=== PATIENT | female | born 1950 | race Caucasian/White ===

== ENCOUNTER 2021-06-30 12:52 | Outpatient (CLI) | payer MEDICARE, SELFPAY ==
--- NOTE | 2021-07-01 07:20 | PFT ---
INTRODUCTION: The patient is a 70-year-old female that presents for pulmonary function studies secondary to a diagnosis of COPD. Respiratory therapy reported good patient effort. Bronchodilators were used during testing. INTERPRETATION: Forced expiration spirometry demonstrates the presence of a severe large airways obstructive ventilatory defect. There was no significant response to aerosolized bronchodilators. Spirograms are of fair quality but do not plateau indicating slow emptying of the lungs. Body plethysmography was performed and reveals lung volumes to be within normal limits. Diffusing capacity by single breath CO is reduced at 48% of predicted. IMPRESSION: Irreversible severe large airways obstructive ventilatory defect with symmetric reduction in diffusing capacity.
== END 2021-06-30 23:59 | disposition home or self-care (01) ==
PROVIDERS: PCP Nurse Practitioner Family; Referring Provider Internal Medicine Critical Care Medicine; Visit Provider Internal Medicine Critical Care Medicine
DX: J44.9 Chronic obstructive pulmonary disease, unspecified (principal)
CPT/HCPCS: 94060; 94726; 94729

== ENCOUNTER 2021-07-23 11:59 | Outpatient (CLI) | payer MEDICARE, SELFPAY ==
[2021-07-23 12:37] VITALS: PULSE 110; PULSE 112; PULSE 113; PULSE 114; PULSE 115; PULSE 116; PULSE 118; O2SAT 86; O2SAT 87; O2SAT 88; O2SAT 89; O2SAT 90; O2SAT 91; O2SAT 94
--- NOTE | 2021-07-23 12:42 | CPS ---
PATIENT WAS ON RA WHILE SITTING IN THE WAITING AREA. SPO2 WAS 87%. SHE HAD HER DEMAND-FLOW POC WITH HER. PLACED AT 2LPM AND TEST BEGAN. SHE REQUIRED FLOW OF 4LPM DEMAND TO MAINTAIN SPO2 >88%. 1 REST BREAK TAKEN FOR INCREASED WOB. PATIENT HAS OXYGEN ESTABLISHED THROUGH [facility] IN [place]. PATIENT ASKED A LOT OF GOOD QUESTIONS, THEREFORE EXPLANATION WAS PROVIDED TO PATIENT ON DIFFERENCES BETWEEN DEMAND-FLOW AND CONTINUOUS-FLOW OXYGEN.
--- NOTE | 2021-07-23 15:16 | WT_ITS ---
PSN 6 Minute Walk Test 6 Minute Walk Test 6 Minute Walk Test: 6 Minute Walk Test PSN:6-Minute Walk Test Start: 07/23/21 12:36 Freq: Status: Active Protocol: RESP.6MINW Document 07/23/21 12:37 [facility] (Rec: 07/23/21 12:54 [facility] [id number]) 6 Minute Walk Test Date Performed 07/23/21 Time Performed 12:30 Height 5 ft 2 in Weight: 63.503 kg Weight in Pounds 140.[address]: Ike Strickland Assistive device used: None Pre-test Oxygen Delivery Method Room Air Pulse Ox (%) 87 Pulse Rate (60-100 beats/min) 114 H Dyspnea Olegario Scale (0-10) 2 Reported Symptoms Increased Work of Breathing 1st minute Oxygen Flow Rate (L/min) (L/min) 2 Oxygen Delivery Method Nasal Cannula Pulse Ox (%) 89 Pulse Rate (60-100 beats/min) 118 H Dyspnea Olegario Scale (0-10) 3 Number of Rests Taken 0 Reported Symptoms Increased Work of Breathing 2nd minute Oxygen Flow Rate (L/min) (L/min) 2 Oxygen Delivery Method Nasal Cannula Pulse Ox (%) 86 Pulse Rate (60-100 beats/min) 118 H Dyspnea Olegario Scale (0-10) 3 Number of Rests Taken 0 Reported Symptoms Increased Work of Breathing 3rd minute Oxygen Flow Rate (L/min) (L/min) 3 Oxygen Delivery Method Nasal Cannula Pulse Ox (%) 88 Pulse Rate (60-100 beats/min) 116 H Dyspnea Olegario Scale (0-10) 3 Number of Rests Taken 1 Reported Symptoms Increased Work of Breathing 4th minute Oxygen Flow Rate (L/min) (L/min) 4 Oxygen Delivery Method Nasal Cannula Pulse Ox (%) 90 Pulse Rate (60-100 beats/min) 113 H Dyspnea Olegario Scale (0-10) 2 Number of Rests Taken 0 Reported Symptoms Increased Work of Breathing 5th minute Oxygen Flow Rate (L/min) (L/min) 4 Oxygen Delivery Method Nasal Cannula Pulse Ox (%) 91 Pulse Rate (60-100 beats/min) 112 H Dyspnea Olegario Scale (0-10) 2 Number of Rests Taken 0 Reported Symptoms Increased Work of Breathing 6th minute Oxygen Flow Rate (L/min) (L/min) 4 Oxygen Delivery Method Nasal Cannula Pulse Ox (%) 89 Pulse Rate (60-100 beats/min) 115 H Dyspnea Olegario Scale (0-10) 3 Number of Rests Taken 0 Reported Symptoms Increased Work of Breathing Post-test Oxygen Flow Rate (L/min) (L/min) 4 Oxygen Delivery Method Nasal Cannula Pulse Ox (%) 94 Pulse Rate (60-100 beats/min) 110 H Dyspnea Olegario Scale (0-10) 2 Reported Symptoms Increased Work of Breathing Full Laps Walked 11 Partial Lap, Number of Tiles Walked 47 Total Distance Walked (ft) 696 07/23/21 12:42 Cardiopulmonary Services by Barbara Radford PATIENT WAS ON RA WHILE SITTING IN THE WAITING AREA. SPO2 WAS 87%. SHE HAD HER DEMAND-FLOW POC WITH HER. PLACED AT 2LPM AND TEST BEGAN. SHE REQUIRED FLOW OF 4LPM DEMAND TO MAINTAIN SPO2 >88%. 1 REST BREAK TAKEN FOR INCREASED WOB. PATIENT HAS OXYGEN ESTABLISHED THROUGH [facility] IN [place]. PATIENT ASKED A LOT OF GOOD QUESTIONS, THEREFORE EXPLANATION WAS PROVIDED TO PATIENT ON DIFFERENCES BETWEEN DEMAND-FLOW AND CONTINUOUS-FLOW OXYGEN. Initialized on 07/23/21 12:42 - END OF NOTE Interpretation Interpretation: The patient was noted to be 87% on room air at rest. The patient was then placed on 2 L nasal cannula with improvement to 91%. The patient was then started on ambulation using her own demand flow POC. Patient required 4 L to maintain saturations throughout testing. Patient did have persistent tachycardia with a peak heart of 118 bpm. In total, the patient traveled 696 feet over the course of 6 minutes with no assistive devices and 1 break. These findings are consistent with respiratory limitation exercise tolerance. Recommendations Recommendations: The patient should be using 2 L nasal cannula at rest, but 4 L/min with any ambulation.
== END 2021-07-23 23:59 | disposition home or self-care (01) ==
LOC: PSN 12:01
PROVIDERS: PCP Nurse Practitioner Family; Referring Provider Internal Medicine Critical Care Medicine; Visit Provider Internal Medicine Critical Care Medicine
DX: J44.9 Chronic obstructive pulmonary disease, unspecified (principal)
CPT/HCPCS: 94618

== ENCOUNTER → 2021-09-17 | Outpatient (CLI) | payer MEDICARE, SELFPAY ==
--- NOTE | 2021-09-17 13:02 | CT_ITS ---
STUDY: CT Chest W/O Contrast Injection 09/17/2021 5:43 PM REASON FOR EXAM: Female, 71 years old. Lung Nodule follow up Individualized dose optimization techniques were used for this CT. TECHNIQUE: Transaxial imaging was performed withoutIV contrast material. COMPARISON: Prior comparison studies are not available for review at this time. FINDINGS: There are degenerative changes of the shoulders. There is no pneumothorax. There is no demonstrated pleural abnormality. There are scattered blebs and bullae. This can be seen in pulmonary emphysema. There is a 5.1 mm right upper lobe nodule. SE: 7 IM: 30. ACR Lung CT Screening Reporting T Data System (Lung-RADS) score: 2 - Benign Appearance or Behavior. Recommend continued annual screening with low-dose CT (LDCT) in 12 months. There are calcifications of the coronary arteries. Normal mediastinum. Normal hilar regions. Normal pulmonary arteries. There is atherosclerotic calcification of the aortic arch with tortuosity and elongation of the aortic arch and descending thoracic aorta. There are multi-level degenerative changes of the thoracic spine. There are no acute findings of the upper abdomen. CT/Chest without Contrast IMPRESSION: There is a 5.1 mm right upper lobe nodule. SE: 7 IM: 30. ACR Lung CT Screening Reporting T Data System (Lung-RADS) score: 2 - Benign Appearance or Behavior. Recommend continued annual screening with low-dose CT (LDCT) in 12 months. Electronically Signed: Moisés Olmedo MD at 17:46 EDT ,
== END | disposition home or self-care (01) ==
LOC: CT 13:01
PROVIDERS: PCP Nurse Practitioner Family; Referring Provider Internal Medicine Critical Care Medicine; Visit Provider Internal Medicine Critical Care Medicine
DX: R91.1 Solitary pulmonary nodule (principal)
CPT/HCPCS: 71250

== ENCOUNTER → 2022-08-03 | Outpatient (CLI) | payer MEDICARE, SELFPAY ==
[2022-08-03 13:45] VITALS: PULSE 118; PULSE 122; PULSE 125; PULSE 128; PULSE 130; O2SAT 88; O2SAT 91; O2SAT 92
--- NOTE | 2022-08-03 14:19 | CPS ---
Pt states she wears 3 lpm pulse dose when up and moving around. Pt was placed on room air prior to start of walk and saturation at rest was 88%. Pt was placed on 1 lpm pulse dose for start of walk. At 1 minute pt was increased to 2 lpm pulse dose and saturation did not go above 88% at rest. Pt was then increased to 3 lpm and walk restarted. Minute 3 pt was turned up to 5lpm pulse dose. Pt finished walk on 5 lpmpulse dose.
--- NOTE | 2022-08-04 10:29 | WT_ITS ---
PSN 6 Minute Walk Test 6 Minute Walk Test 6 Minute Walk Test: 6 Minute Walk Test PSN:6-Minute Walk Test Start: 08/03/22 14:14 Freq: Status: Active Protocol: RESP.6MINW Document 08/03/22 13:45 AE (Rec: 08/03/22 14:29 [facility] [id number]) 6 Minute Walk Test Date Performed 08/03/22 Time Performed 13:45 Height 5 ft 2 in Weight: 77.111 kg Weight in Pounds 170.[address]: Deysi Mcadams Assistive device used: None Pre-test Oxygen Flow Rate (L/min) (L/min) 1 Oxygen Delivery Method Nasal Cannula Pulse Ox (%) 91 Pulse Rate (60-100 beats/min) 118 H Dyspnea Olegario Scale (0-10) 0 Exertion Olegario Scale (6-20) 6 1st minute Oxygen Flow Rate (L/min) (L/min) 1 Oxygen Delivery Method Nasal Cannula Pulse Ox (%) 88 Pulse Rate (60-100 beats/min) 122 H Dyspnea Olegario Scale (0-10) 0.5 2nd minute Oxygen Flow Rate (L/min) (L/min) 3 Oxygen Delivery Method Nasal Cannula Pulse Ox (%) 88 Pulse Rate (60-100 beats/min) 122 H Dyspnea Olegario Scale (0-10) 0.5 3rd minute Oxygen Flow Rate (L/min) (L/min) 4 Oxygen Delivery Method Nasal Cannula Pulse Ox (%) 88 Pulse Rate (60-100 beats/min) 130 H Dyspnea Olegario Scale (0-10) 0.5 4th minute Oxygen Flow Rate (L/min) (L/min) 5 Oxygen Delivery Method Nasal Cannula Pulse Ox (%) 92 Pulse Rate (60-100 beats/min) 125 H 5th minute Oxygen Flow Rate (L/min) (L/min) 5 Oxygen Delivery Method Nasal Cannula Pulse Ox (%) 91 Pulse Rate (60-100 beats/min) 128 H 6th minute Oxygen Flow Rate (L/min) (L/min) 5 Oxygen Delivery Method Nasal Cannula Pulse Ox (%) 91 Pulse Rate (60-100 beats/min) 130 H Dyspnea Olegario Scale (0-10) 0.5 Exertion Olegario Scale (6-20) 11 Post-test Oxygen Flow Rate (L/min) (L/min) 5 Oxygen Delivery Method Nasal Cannula Pulse Ox (%) 92 Pulse Rate (60-100 beats/min) 118 H Full Laps Walked 10 Partial Lap, Number of Tiles Walked 41 Total Distance Walked (ft) 631 08/03/22 14:19 Cardiopulmonary Services by Jolene Rubio Pt states she wears 3 lpm pulse dose when up and moving around. Pt was placed on room air prior to start of walk and saturation at rest was 88%. Pt was placed on 1 lpm pulse dose for start of walk. At 1 minute pt was increased to 2 lpm pulse dose and saturation did not go above 88% at rest. Pt was then increased to 3 lpm and walk restarted. Minute 3 pt was turned up to 5lpm pulse dose. Pt finished walk on 5 lpmpulse dose. Initialized on 08/03/22 14:19 - END OF NOTE Interpretation Interpretation: The patient was noted to be 88% on room air, so was placed on 1 L pulsed dose at rest and saturated 91%. Unfortunately, the patient had progressive hypoxia with ambulation requiring up to 5 L pulsed dose to maintain saturations throughout testing. Patient was noted to have significant persistent tachycardia with a peak heart rate of 130 bpm. In total, the patient was able to travel 631 feet over the course of 6 minutes with no assistive devices and 3 breaks. These findings are consistent with a cardiopulmonary limitation exercise tolerance. Formal cardiometabolic testing would be required to differentiate etiologies. Recommendations Recommendations: The patient requires 1 L pulsed dose with rest, but 5 L pulsed dose with any activity.
== END | disposition home or self-care (01) ==
LOC: PSN 13:36
PROVIDERS: PCP Nurse Practitioner Family; Referring Provider Nurse Practitioner Acute Care; Visit Provider Nurse Practitioner Acute Care
DX: J44.9 Chronic obstructive pulmonary disease, unspecified (principal)
CPT/HCPCS: 94618

== ENCOUNTER → 2022-11-15 | Outpatient (CLI) | payer MEDICARE, SELFPAY ==
--- NOTE | 2022-11-15 12:37 | CT_ITS ---
STUDY: LOW DOSE CT LUNG CANCER SCREENING REASON FOR EXAM: Female, 72 years old. Smoker, quit 2019. Patient smoked 1 pack per day for 20+ years. RADIATION DOSAGE (If Supplied By Facility): CTDIvol = ( 2.01 ) mGy, DLP = ( 65.45 ) mGycm TECHNIQUE: No contrast was administered. Low dose technique was utilized (average mAS-38 and kVp 120). 1.25 mm axial source images with a slice interval of 1.25-mm were reconstructed in lung windows. 2.5 mm axial source images with a slice interval of 2.5-mm were reconstructed in lung windows. 5.0 mm axial source images with a slice interval of 5.0-mm were reconstructed in soft tissue windows. COMPARISON: Comparison is made with prior examination dated September 17, 2021. NODULES: Stable 5 mm noncalcified nodule in the lateral aspect of the right upper lobe as seen on axial image #56. Emphysema: Mild degree of emphysematous changes. Endobronchial lesion: None Aorta: Atherosclerotic calcific plaques. CORONARY ARTERIES: Coronary artery calcification is seen. Heart: Unremarkable Pulmonary artery: Unremarkable Mediastinal nodes: Small mediastinal lymph nodes. Other chest and abdominal findings: CT/Low Dose CT Lung Screening IMPRESSION: Lung-RADS category 2 - Continue annual screening with LDCT in 12 months. IMPORTANT NOTES FOR USE: ACR Lung-RADS Version 1.1 Assessment Categories Release Date: 2018 Category: Coded 0-4 bases on nodule(s) with highest degree of suspicion. Negative screen is defined as categories 1 and 2; a positive screen is defined as categories 3 and 4. Category 3 and 4A nodules that are unchanged on interval CT should be coded as category 2, and individuals returned to screening in 12 months. Category 4X: Category 3 or 4 nodules with additional imaging findings that increase the suspicion of lung cancer, such as spiculation, GGN that doubles in size in 1 year, enlarged lymph notes, etc. Category Modifiers: S (significant finding unrelated to lung cancer) Electronically Signed: Afshin Sanford MD at 12:59 EDT ,
== END | disposition home or self-care (01) ==
LOC: CT 12:35
PROVIDERS: PCP Nurse Practitioner Family; Referring Provider Nurse Practitioner Acute Care; Visit Provider Nurse Practitioner Acute Care
DX: Z12.2 Encounter for screening for malignant neoplasm of respiratory organs (principal); F17.211 Nicotine dependence, cigarettes, in remission
CPT/HCPCS: 71271